=== PATIENT | female | born 1995 | race Two or more races ===

== ENCOUNTER → 2024-08-09 | Outpatient (CLI) | payer MEDICAID, SELFPAY ==
--- NOTE | 2024-08-09 09:00 | XR_ITS ---
Examination: Upper GI series with KUB Esophagram standard Fluoroscopy 24 spot fluoroscopic films of the esophagus and stomach Exam date and time: August 09, 2024 0945 hours INDICATIONS: Preop gastric bypass surgery TECHNIQUE AND FINDINGS: Courtesy [employer] AP supine abdomen nonobstructive bowel gas pattern Patient swallowed thin barium with 24 spot fluoroscopic films of the esophagus and stomach Fluoroscopy 0.29 minutes Primary peristaltic esophageal waves Significant gastroesophageal reflux No stricture the gastroesophageal junction No esophageal lesion No gastric mass deformity or ulceration Duodenal bulb expands symmetrically and duodenal sweep small bowel visualized are unremarkable IMPRESSION: Significant gastroesophageal reflux
== END | disposition home or self-care (01) ==
LOC: CDIM 09:11
PROVIDERS: PCP Nurse Practitioner; Referring Provider Specialist; Visit Provider Specialist
DX: K21.9 Gastro-esophageal reflux disease without esophagitis (principal)
CPT/HCPCS: 74240; A4699